=== PATIENT | male | born 1960 | race Hispanic/Latino ===

== ENCOUNTER 2021-01-14 12:49 | Emergency (ER) | payer OTHER ==
[~2021-01-14] VITALS: Ht 177.8 cm; Wt 120.0 kg
[2021-01-14] MEDS ORDERED: (None)3.5 GM IO (14:39)
[2021-01-14 15:16] VITALS: BP 160/99
== END 2021-01-14 15:20 | disposition home or self-care (01) | DRG 125 ==
LOC: ED 12:49
DX: T15.02XA Foreign body in cornea, left eye, initial encounter (principal); I10 Essential (primary) hypertension; X58.XXXA Exposure to other specified factors, initial encounter